=== PATIENT | male | born 1970 | race Caucasian/White ===

== ENCOUNTER 2017-08-06 19:02 | Emergency (ER) | payer BC ==
[2017-08-06 20:51] VITALS: BP 129/90
== END 2017-08-06 20:51 | disposition home or self-care (01) ==
LOC: ED 19:02
DX: L03.311 Cellulitis of abdominal wall (principal); E11.9 Type 2 diabetes mellitus without complications; G89.29 Other chronic pain; Z79.84 Long term (current) use of oral hypoglycemic drugs
CPT/HCPCS: J0696; J1885